=== PATIENT | male | born 1960 | race Caucasian/White ===

== ENCOUNTER 2021-05-05 18:13 | Emergency (ER) | payer OTHER, SELFPAY ==
[2021-05-05] VITALS (8 sets, daily range): BP systolic 127–159; BP diastolic 60–96; PULSE 70–81; RESP 14–26; TEMP 36.4; O2SAT 96–98; BMI 38.6
[2021-05-05 19:03] LABS: Add Manual Diff / Slide Review NO; Basophils Absolute Auto 100 /uL (0-100); Basophils Percent Auto 0.5 % (0-2); Eosinophils Absolute Auto 300 /uL (0-450); Eosinophils Percent Auto 2.8 % (2-4); Hematocrit 39.7 % (41-53); Lymphocytes Absolute Auto 5000 /uL (1100-4500); Lymphocytes Percent Auto 41.4 % (25-40); Mean Corpuscular HGB Conc 35.3 % (30-36); Mean Corpuscular Hemoglobin 28.7 PG (26-34); Mean Corpuscular Volume 81.3 fL (80-100); Monocytes Absolute Auto 900 /uL (0-900); Monocytes Percent Auto 7.7 % (3-14); Neutrophils Absolute Auto 5800 /uL (1500-7000); Neutrophils Percent Auto 47.6 % (50-75); Platelet Count 223 X10^3/uL (150-400); Red Blood Cell Count 4.88 X10^6/uL (4.5-5.9); Red Cell Distribution Width 14.8 % (11.6-14.8); White Blood Cell Count 12.1 X10^3/uL (4.5-11.0)
--- NOTE | 2021-05-05 19:03 | ED_ITS ---
HPI - General Adult General Chief complaint: Abdominal Pain Stated complaint: Lower Lt Abd Pain Time Seen by Provider: 05/05/21 18:48 Source: patient Mode of arrival: Ambulatory History of Present Illness HPI narrative: Patient is a 60-year-old male who is here for evaluation of several hours of left lower abdominal pain/left inguinal pain. He states that it was a gradual onset several hours ago. He did take some leftover Percocet that he had secondary to a back injury earlier in the day because of the discomfort. He states that his symptoms have improved somewhat since then. He initially thought that maybe he had a urinary tract infection or kidney stone although he has never had either of these issues in the past. Denies any problems with bowel movements. No vomiting. No skin rashes. Does have back discomfort but this is not new for him. Related Data Allergies Allergy/AdvReac Type Severity Reaction Status Date / Time No Known Drug Allergies Allergy Verified 05/05/21 18:41 Review of Systems Constitutional Constitutional: Denies fever(s) and Denies headache(s) ENT Ears, Nose, Mouth, and Throat: Denies headache(s) Cardiovascular Cardiovascular: Denies chest pain and Denies dyspnea Respiratory Respiratory: Denies dyspnea Gastrointestinal Gastrointestinal: Reports as per HPI Genitourinary Genitourinary: Reports system reviewed and no additional complaints, except as documented and Reports as per HPI Musculoskeletal Musculoskeletal: Reports system reviewed and no additional complaints, except as documented and Reports as per HPI Integumentary/Breasts Skin/Breast: Reports as per HPI Neurologic Neurologic: Denies headache(s) Hematologic/Lymphatic On Anticoagulants: No Patient History Medical History Diabetes Social History Smoking Status: Unknown if ever smoked Smoking Status: Unknown if ever smoked alcohol intake frequency: a few times a week Substance Use Type: does not use Exam Initial Vital Signs Initial Vital Signs: Vital Signs Temperature 97.5 F L 05/05/21 18:35 Pulse Rate 77 05/05/21 18:35 Respiratory Rate 15 05/05/21 18:35 Blood Pressure 159/96 H 05/05/21 18:35 Pulse Oximetry 98 05/05/21 18:35 Const General: cooperative, healthy appearing and comfortable [facility] Head: normal to inspection Resp Effort & Inspection: normal respiratory effort Auscultation: clear to auscultation bilaterally Cardio Rate: regular rate Rhythm: regular rhythm GI Inspection: normal to inspection Palpation: soft, No firm and No tender External: normal external exam, circumcised, no edema, no hernia, no inguinal lymphadenopathy, no scrotal swelling and nontender Penis: normal penis Scrotum: scrotum normal Skin General: no rashes or lesions noted Neuro General: patient alert, patient awake, patient oriented x3 and moves all extremities Extrem General: normal to inspection and capillary refill normal Psych Appearance: grossly normal and well kempt Course Orders Ordered: ED Orders 05/05/21 18:41 EKG-12 Lead Stat 05/05/21 18:45 Complete Blood Count AUTO DIFF Stat Comprehensive Metabolic Panel Stat Lipase Stat 05/05/21 18:46 Urine Microscopic Stat 05/05/21 19:08 CT abdomen pelvis w con Stat US scrotum Stat Vital Signs Vital signs: Vital Signs - 8 hr 05/05/21 18:35 05/05/21 18:49 05/05/21 18:51 Temperature 97.5 F L Pulse Rate 77 79 78 Respiratory Rate 15 17 Blood Pressure 159/96 H 127/60 Pulse Oximetry 98 98 96 05/05/21 19:00 05/05/21 19:38 05/05/21 20:00 Temperature Pulse Rate 81 71 72 Respiratory Rate 26 H 19 18 Blood Pressure 127/60 Pulse Oximetry 97 98 97 05/05/21 20:30 05/05/21 21:00 Temperature Pulse Rate 74 70 Respiratory Rate 14 15 Blood Pressure Pulse Oximetry 96 96 Medical Decision Making Lab Data Lab results reviewed: Yes I reviewed the patient's lab results. Result diagrams: 05/05/21 18:45 05/05/21 18:45 Labs: Lab Results 05/05/21 05/05/21 05/05/21 Range/Units 18:45 18:45 18:46 WBC 12.1 H (4.5-11.0) X10^3/uL RBC 4.88 (4.5-5.9) X10^6/uL Hgb 14.0 (13.5-17.5) g/dL Hct 39.7 L (41-53) % MCV 81.3 (80-100) fL MCH 28.7 (26-34) PG MCHC 35.3 (30-36) % RDW 14.8 (11.6-14.8) % Plt Count 223 (150-400) X10^3/uL Neut % (Auto) 47.6 L (50-75) % Lymph % (Auto) 41.4 H (25-40) % [place] % (Auto) 7.7 (3-14) % Eos % (Auto) 2.8 (2-4) % Baso % (Auto) 0.5 (0-2) % Neut # (Auto) 5800 (2177-8279) /uL Lymph # (Auto) 5000 H (3855-2069) /uL [place] # (Auto) 900 (0-900) /uL Eos # (Auto) 300 (0-450) /uL Baso # (Auto) 100 (0-100) /uL Sodium 139 (137-145) mmol/L Potassium 3.8 (3.4-5.1) mmol/L Chloride 108 H (98-107) mmol/L Carbon Dioxide 27 (22-32) mmol/L BUN 13 (9-20) mg/dL Creatinine 0.82 (0.66-1.25) mg/dL Estimated GFR > 60.0 (>60) mL/min BUN/Creatinine Ratio 15.9 (6-22) Glucose 76 (70-100) mg/dL Calcium 9.6 (8.4-10.2) mg/dL Total Bilirubin 0.6 (0.2-1.3) mg/dL AST 28 (17-59) IU/L ALT 23 (<50) IU/L Alkaline Phosphatase 75 (38-126) U/L Total Protein 7.0 (6.3-8.2) g/dL Albumin 4.3 (3.5-5.0) g/dL Globulin 2.7 (1.7-4.1) g/dL Albumin/Globulin Ratio 1.6 (1.0-2.8) Lipase 53 (23-300) U/L Urine RBC 0-1/hpf (0-5/HPF) Urine WBC 1-5/hpf (0-5/HPF) Ur Squamous Epith Cells 1-5 /hpf (0-5/HPF) Urine Bacteria None seen (None) Urine Mucus 2+ H (Negative) Ur Culture Indicated? Cult not indicated Urine Dip Bedside Urine Glucose Negative Bedside Urine Bilirubin - Negative Bedside Urine Ketone - Negative Urine Specific [place] 1.030 Bedside Urine Occult Blood - Negative Bedside Urine pH 6.0 Bedside Urine Protein + 30 Bedside Urine Urobilinogen +/- 1mg Bedside Urine Nitrite - Negative Bedside Urine Leukocytes - Negative Esterase Point of care testing: Urine Dip Bedside Urine Glucose Negative Bedside Urine Bilirubin - Negative Bedside Urine Ketone - Negative Urine Specific [place] 1.030 Bedside Urine Occult Blood - Negative Bedside Urine pH 6.0 Bedside Urine Protein + 30 Bedside Urine Urobilinogen +/- 1mg Bedside Urine Nitrite - Negative Bedside Urine Leukocytes - Negative Esterase Imaging Data CT scan - abdomen/pelvis: Radiologist's Impression: [address] [address] [address] Scan Report Signed Patient: Jake Prince MR#: [id number] : 1960 Acct:[id number] Age/Sex: 60 / M Date of Service: 05/05/21 Loc: ED Accession Number: [id number] ?? Procedure: CT abdomen pelvis w con Ordering Provider: Misael Corey D.O. PROCEDURE:? CT ABDOMEN PELVIS W CON ? INDICATIONS:? LLQ abd pain ? TECHNIQUE:? After the administration of oral and IV contrast, axial sections were acquired from the lung bases to the pubic symphysis.? Coronal and sagittal reformats were performed.? For radiation dose reduction, the following was used:? automated exposure control, adjustment of mA and/or kV according to patient size. ? COMPARISON:? None. ? FINDINGS:? Image quality:? Excellent.? ? Lung bases:? Unremarkable.? ? Heart:? Within normal limits. ? ? ABDOMEN: Liver:? Unremarkable.? ? Gallbladder:? Unremarkable.? ? Biliary ducts:? Unremarkable.? ? Pancreas:? Atrophic.? ? Spleen:? Mildly enlarged measuring 13.6 cm.? ? Adrenal Glands:? No nodule.? ? Kidneys and Ureters:? No hydronephrosis.? ? ? Stomach and Bowel:? Stomach, small bowel loops, and colon are unremarkable.? Peritoneum:? No abnormal intraperitoneal fluid.? No free air.? ? Ventral Wall: ? Suspect rectus diastasis.? Small fat containing umbilical hernia. Abdominal Nodes:? No retroperitoneal or mesenteric adenopathy by size criteria.? Vessels:? Aorta and inferior vena cava are normal in size.? Mild calcified plaque.? ? PELVIS: Pelvic Organs:? Unremarkable.? ? Bladder:? Unremarkable.? ? Pelvic Nodes: No enlarged lymph nodes.? Miscellaneous: No inguinal hernias are seen. ? ? ? Bones:? Suspect a bone cyst in the left hip intertrochanteric region.? Mild height loss at T12. ? ? IMPRESSION:? 1. No acute abnormality identified.? No free fluid.? ? 2. Mild compression fracture at T12. Left hip bone cyst.? ? ? Dictated by: Jeb Garcia M.D. on 05/05/2021 at 19:46 ? ? Approved by: Jeb Garcia M.D. on 05/05/2021 at 19:56?? Scrotal ultrasound: Radiologist's Impression: Launch?Image [address] [address] Ultrasound Report Signed Patient: Jake Prince MR#: [id number] : 1960 Acct:[id number] Age/Sex: 60 / M Date of Service: 05/05/21 Loc: ED Accession Number: [id number] ?? Procedure: US scrotum Ordering Provider: Misael Corey D.O. PROCEDURE:? US SCROTUM ? INDICATIONS:? LEFT TESTICULAR PAIN ? TECHNIQUE:? Real-time scanning was performed of the scrotum and testicles, with image docume ntation.? Color and pulse Doppler interrogation was performed of both testicles.? ? COMPARISON:? [facility], CT, CT ABDOMEN PELVIS W CON, 05/05/2021, 19:32. ? FINDINGS:? ? Right:? Testicle is normal in size at 5.8 x 3.6 x 2.5 cm, and homogenous in echotexture.? Epididymis is normal in overall size and morphology.? No hydrocele or varicoceles.? Overlying scrotal skin is normal in thickness but there is a focal 4 x 4 mm rounded scrotal wall nodule, soft tissue, with visualized peripheral vascularity.? ? Left:? Testicle is normal in size at 5.0 x 4.0 x 3.1 cm, and homogeneous in echotexture.? Epididymis is normal in overall size and morphology.? No hydrocele or varicoceles.? Overlying scrotal skin is normal in thickness.? ? Doppler:? Color and pulse Doppler demonstrate normal arterial flow in the right testicle, but elevated vascularity involving the testicular parenchyma and epididymis, to a mild degree. ? IMPRESSION:? The testicular symptomatology is on the left and this is associated with mild increased arterial vascularity involving the left testis and left epididymis. ? There is an unexpected finding at the right scrotal wall, chronicity and etiology uncertain, with a small 4 mm soft tissue nodule identified within the wall itself.? This structure should be further assessed 4-6 weeks by ultrasound and urology consultation would be recommended if this persists.? This is considered likely benign at this time.? ? Dictated by: Corey Jimenez M.D. on 05/05/2021 at 20:41 ? ? Approved by: Corey Jimenez M.D. on 05/05/2021 at 20:48 ECG Data Interpretation: Sinus rhythm Ventricular rate of 70 Normal QRS Normal axis Nonspecific ST T wave changes MDM Narrative Medical decision making narrative: CT scans unremarkable. Ultrasound shows epididymo-orchitis. This does explain the symptoms that he is having. He denies any concern for sexually transmitted diseases. There is also an incidental finding of a scrotal mass noted on the right side. This is not felt on the exam. Patient was informed of this. He was instructed that he needed to contact his primary doctor for follow-up with a repeat ultrasound. He expressed understanding and agreement. Discharge Plan Departure Patient Disposition: Home Clinical Impression: Orchitis and epididymitis, Scrotal nodule Instructions: Epididymitis, Orchitis Activity Restrictions/Additional Instructions: Can continue take Tylenol/ibuprofen for the epididymitis/orchitis. Wear supportive clothing as well. There was an incidental finding of a nodule found on the right side of the scrotum. The recommendation is for repeat ultrasound in 4-6 weeks and to talk with your primary doctor about the indications for seeing a urologist. Return to the emergency department for any new or worsening symptoms. Referrals: Den Diaz MD [Physician] -
--- NOTE | 2021-05-05 19:08 | DI.US.S_ITS ---
PROCEDURE: US SCROTUM INDICATIONS: LEFT TESTICULAR PAIN TECHNIQUE: Real-time scanning was performed of the scrotum and testicles, with image documentation. Color and pulse Doppler interrogation was performed of both testicles. COMPARISON: [facility], CT, CT ABDOMEN PELVIS W CON, 05/05/2021, 19:32. FINDINGS: Right: Testicle is normal in size at 5.8 x 3.6 x 2.5 cm, and homogenous in echotexture. Epididymis is normal in overall size and morphology. No hydrocele or varicoceles. Overlying scrotal skin is normal in thickness but there is a focal 4 x 4 mm rounded scrotal wall nodule, soft tissue, with visualized peripheral vascularity. Left: Testicle is normal in size at 5.0 x 4.0 x 3.1 cm, and homogeneous in echotexture. Epididymis is normal in overall size and morphology. No hydrocele or varicoceles. Overlying scrotal skin is normal in thickness. Doppler: Color and pulse Doppler demonstrate normal arterial flow in the right testicle, but elevated vascularity involving the testicular parenchyma and epididymis, to a mild degree. IMPRESSION: The testicular symptomatology is on the left and this is associated with mild increased arterial vascularity involving the left testis and left epididymis. There is an unexpected finding at the right scrotal wall, chronicity and etiology uncertain, with a small 4 mm soft tissue nodule identified within the wall itself. This structure should be further assessed 4-6 weeks by ultrasound and urology consultation would be recommended if this persists. This is considered likely benign at this time. Dictated by: Corey Jimenez M.D. on 05/05/2021 at 20:41 Approved by: Corey Jimenez M.D. on 05/05/2021 at 20:48
--- NOTE | 2021-05-05 19:08 | DI.CT.S_ITS ---
PROCEDURE: CT ABDOMEN PELVIS W CON INDICATIONS: LLQ abd pain TECHNIQUE: After the administration of oral and IV contrast, axial sections were acquired from the lung bases to the pubic symphysis. Coronal and sagittal reformats were performed. For radiation dose reduction, the following was used: automated exposure control, adjustment of mA and/or kV according to patient size. COMPARISON: None. FINDINGS: Image quality: Excellent. Lung bases: Unremarkable. Heart: Within normal limits. ABDOMEN: Liver: Unremarkable. Gallbladder: Unremarkable. Biliary ducts: Unremarkable. Pancreas: Atrophic. Spleen: Mildly enlarged measuring 13.6 cm. Adrenal Glands: No nodule. Kidneys and Ureters: No hydronephrosis. Stomach and Bowel: Stomach, small bowel loops, and colon are unremarkable. Peritoneum: No abnormal intraperitoneal fluid. No free air. Ventral Wall: Suspect rectus diastasis. Small fat containing umbilical hernia. Abdominal Nodes: No retroperitoneal or mesenteric adenopathy by size criteria. Vessels: Aorta and inferior vena cava are normal in size. Mild calcified plaque. PELVIS: Pelvic Organs: Unremarkable. Bladder: Unremarkable. Pelvic Nodes: No enlarged lymph nodes. Miscellaneous: No inguinal hernias are seen. Bones: Suspect a bone cyst in the left hip intertrochanteric region. Mild height loss at T12. IMPRESSION: 1. No acute abnormality identified. No free fluid. 2. Mild compression fracture at T12. Left hip bone cyst. Dictated by: Jeb Garcia M.D. on 05/05/2021 at 19:46 Approved by: Jeb Garcia M.D. on 05/05/2021 at 19:56
[2021-05-05 19:11] LABS: Alanine Aminotransferase 23 IU/L (<50); Albumin 4.3 g/dL (3.5-5.0); Albumin Globulin Ratio 1.6 (1.0-2.8); Alkaline Phosphatase 75 U/L (38-126); Aspartate Aminotransferase 28 IU/L (17-59); BUN Creatinine Ratio 15.9 (6-22); Bilirubin Total 0.6 mg/dL (0.2-1.3); Blood Urea Nitrogen 13 mg/dL (9-20); Calcium 9.6 mg/dL (8.4-10.2); Carbon Dioxide 27 mmol/L (22-32); Chloride 108 mmol/L (98-107); Estimated Glomerular Filt Rate > 60.0 mL/min (>60); Globulin 2.7 g/dL (1.7-4.1); Glucose 76 mg/dL (70-100); HEMOLYSIS < 15 (0-50); Lipase 53 U/L (23-300); Potassium 3.8 mmol/L (3.4-5.1); Sodium 139 mmol/L (137-145)
[2021-05-05 19:12] LABS: Bacteria Urine None Seen; Culture Indicated Urine Cult Not Indicated; Mucus Urine 2+ (Negative); RBC Urine 0-1/HPF (0-5/HPF); Squamous Epithelial Cell Urine 1-5 /HPF (0-5/HPF); WBC Urine 1-5/HPF (0-5/HPF)
== END 2021-05-05 21:21 | disposition home or self-care (01) ==
PROVIDERS: Emergency Provider Emergency Medicine
DX: N45.3 Epididymo-orchitis (principal); N49.2 Inflammatory disorders of scrotum; R03.0 Elevated blood-pressure reading, without diagnosis of hypertension
CPT/HCPCS: 36415; 74177; 76870; 80053; 81003; 81015; 83690; 85025; 93005; 93010; 99284